=== PATIENT | female | born 1985 | race Caucasian/White ===

== ENCOUNTER 2020-03-24 14:34 | Emergency (ER) | payer OTHER ==
[~2020-03-24] VITALS: Ht 162.6 cm; Wt 93.4 kg
[2020-03-24 14:38] VITALS: BP 121/73
--- NOTE | 2020-03-24 15:23 | NUR ---
35 y/o female presents to ED for medication refill for tramadol. Pt states she ran out and has not been able to see primary care and suffers from chronic back pain. VSS
[2020-03-24 15:26] VITALS: BP 121/73
--- NOTE | 2020-03-24 15:27 | NUR ---
Patient discharged with v/s stable. Written and verbal after care instructions given and explained. Patient alert, oriented and verbalized understanding of instructions. Ambulatory with steady gait. All questions addressed prior to discharge. ID band removed. Patient advised to follow up with PMD. Rx of tramdol 50mg q8hr PO PRN given. Patient educated on indication of medication including possible reaction and side effects. Opportunity to ask questions provided and answered.
== END 2020-03-24 15:27 | disposition home or self-care (01) ==
LOC: MED 14:34
DX: G89.29 Other chronic pain (principal); M54.5 Low back pain; Z76.0 Encounter for issue of repeat prescription
CPT/HCPCS: 99281; 99283

== ENCOUNTER 2020-06-24 13:54 | Emergency (ER) | payer OTHER ==
[~2020-06-24] VITALS: Ht 162.6 cm; Wt 88.9 kg
[2020-06-24 13:59] VITALS: BP 105/63
[2020-06-24 14:34] VITALS: BP 106/64
== END 2020-06-24 14:34 | disposition home or self-care (01) ==
LOC: MED 13:54
DX: G89.29 Other chronic pain (principal); M54.5 Low back pain; D64.9 Anemia, unspecified; Z98.890 Other specified postprocedural states; Z90.49 Acquired absence of other specified parts of digestive tract
CPT/HCPCS: 99283

== ENCOUNTER 2020-08-17 16:40 | Emergency (ER) | payer OTHER ==
[~2020-08-17] VITALS: Ht 160 cm; Wt 93.0 kg
[2020-08-17 16:51] VITALS: BP 124/68
[2020-08-17] MEDS ORDERED: TRAM50TA3 PO (17:06)
[2020-08-17 17:46] VITALS: BP 124/68
== END 2020-08-17 17:46 | disposition home or self-care (01) ==
LOC: MED 16:40
DX: G89.29 Other chronic pain (principal); M54.9 Dorsalgia, unspecified; W10.8XXD Fall (on) (from) other stairs and steps, subsequent encounter; Z79.899 Other long term (current) drug therapy
CPT/HCPCS: 99281

== ENCOUNTER 2020-09-16 15:43 | Emergency (ER) | payer OTHER ==
[~2020-09-16] VITALS: Ht 162.6 cm; Wt 93.0 kg
[~2020-09-16 15:43] MED LIST: TRAM50TA3 PO
[2020-09-16 15:51] VITALS: BP 132/69
--- NOTE | 2020-09-16 15:57 | NUR ---
Pt ambulated to ER bed 11.
--- NOTE | 2020-09-16 16:01 | NUR ---
35 Y/O FEMALE C/O MIGRAINE X5DAYS INTERMITTENT 09/05 DESCRIBES DULL. PT STATES N/V, SENSITIVITY TO LIGHT, DENIES FEVER/CHILLS. PT STATES SHE TAKES TRAMADOL 50MG BID BUT HAS BEEN TAKING IT TID, RAN OUT. PCP APPT PENDING UNTIL THE BEGINNING OF NEXT MONTH. DENIES PMH NKA
--- NOTE | 2020-09-16 16:31 | NUR ---
Dr. Dubon at pt bedside for further evaluation.
[2020-09-16] MEDS ORDERED: diphenhydrAMINE 50 MG/ML VIAL IVP ONE (16:40)
[2020-09-16] MEDS ORDERED: NACL 0.9% 1,000 ML IV ONE (16:40)
[2020-09-16] MEDS ORDERED: METOCLOPRAMIDE 10 MG/2 ML INJ VIAL IVP ONE (16:40)
--- NOTE | 2020-09-16 17:18 | NUR ---
PATIENT AMBULATED TO RESTROOM WITH STEADY GAIT
[2020-09-16] MEDS ORDERED: TRAM50TA1 PO (18:26)
[2020-09-16] MEDS ORDERED: SUMA20SP NS (18:26)
[2020-09-16 18:39] VITALS: BP 132/69
--- NOTE | 2020-09-16 18:40 | NUR ---
Patient discharged with v/s stable. Written and verbal after care instructions given and explained. Patient alert, oriented and verbalized understanding of instructions. Ambulatory with steady gait. All questions addressed prior to discharge. ID band removed. Patient advised to follow up with PMD. Rx of sumatriptan 20mg Nasal spray once daily prn headaches, and tramadol 50mg BID po prn pain given. Patient educated on indication of medication including possible reaction and side effects. Opportunity to ask questions provided and answered.
== END 2020-09-16 18:40 | disposition home or self-care (01) ==
LOC: MED 15:43
DX: R51.9 Headache, unspecified (principal); G89.29 Other chronic pain; F19.20 Other psychoactive substance dependence, uncomplicated; Z79.899 Other long term (current) drug therapy
CPT/HCPCS: 96361; 96374; 96375; 99284; J1200; J2765; J7030

== ENCOUNTER 2020-11-10 17:33 | Emergency (ER) | payer OTHER ==
[~2020-11-10] VITALS: Ht 162.6 cm; Wt 91.9 kg
[~2020-11-10 17:33] MED LIST changes: +SUMA20SP NS; +TRAM50TA1 PO
--- NOTE | 2020-11-10 17:36 | NUR ---
Pt ambulated to ER bed 11.
[2020-11-10 17:37] VITALS: BP 106/46
[2020-11-10] MEDS ORDERED: KETOROLAC 30 MG/ML VIAL IM ONE (17:40)
--- NOTE | 2020-11-10 17:45 | NUR ---
35 Y/O FEMALE C/O MID BACK PAIN6/10 DESCRIBES SHARP AND ACHING RADIATES TO UPPER BACK S/P FALL X3 DAYS. PT DENIES LOC, DENIES HITTING HEAD, DENIES N/V, DENIES FEVER/CHILLS. PMH: HYPOTHYROIDISM, MIGRAINE NKA
--- NOTE | 2020-11-10 17:48 | NUR ---
BIANCA Hoang at pt bedside for further evaluation.
[2020-11-10] MEDS ORDERED: TRAM50TA1 PO (17:54)
--- NOTE | 2020-11-10 18:02 | NUR ---
Patient discharged with v/s stable. Written and verbal after care instructions given FOR BACK SPRAIN and explained. Patient alert, oriented and verbalized understanding of instructions. Ambulatory with steady gait. All questions addressed prior to discharge. ID band removed. Patient advised to follow up with PMD. Rx of TRAMADOL 50MG PO BID PRN PAIN given. Patient educated on indication of medication including possible reaction and side effects. Opportunity to ask questions provided and answered.
== END 2020-11-10 18:01 | disposition home or self-care (01) ==
LOC: MED 17:33
DX: M54.5 Low back pain (principal); E07.9 Disorder of thyroid, unspecified; Z79.899 Other long term (current) drug therapy; Z98.890 Other specified postprocedural states
CPT/HCPCS: 81002; 81025; 96372; 99283; J1885

== ENCOUNTER 2020-12-08 15:15 | Emergency (ER) | payer OTHER ==
[~2020-12-08] VITALS: Ht 162.6 cm; Wt 91.9 kg
[2020-12-08 15:41] VITALS: BP 129/64
--- NOTE | 2020-12-08 17:10 | NUR ---
Patient ambulated from lobby to bed 11 with steady/even gait.
--- NOTE | 2020-12-08 17:18 | NUR ---
35 y/o F BIB self from home with c/c follow-up hCG quant. Patient A&Ox4, ambulatory, reports seen at [facility] on 12/06 for blood work and advised hCG 190034, 7weeks 3 days. Patient states vaginal cramping x 2 weeks, and bleeding x 1 day "spotting" that went away. Patient states nausea that is normal for her, reports able to keep foods down. A1 L2. LMP: September 2020. Denies dizziness, fever/chills, SOB, cough, flu-like symptoms, urinary symptoms. Pt resting in position of comfort in no distress. Bed locked in lowest position, side rails x2, call light in reach. PMH: HYPOTHYROID, back pain Meds: Tramadol, levothyroxine Sx: 2 C-sections, ankle sx NKA
--- NOTE | 2020-12-08 17:18 | NUR ---
BIANCA Hoang is evaluating patient at bedside.
--- NOTE | 2020-12-08 17:55 | NUR ---
Lab contacted to dilute blood sample d/t too high of reading. Patient and BIANCA Hoang made aware.
--- NOTE | 2020-12-08 18:15 | NUR ---
Patient requested OB-HOME CARE PHYSICAL THERAPIST MD information; resource sheet provided per request.
[2020-12-08] MEDS ORDERED: DOXY1TCP PO (18:34)
[2020-12-08 18:53] VITALS: BP 110/64
--- NOTE | 2020-12-08 18:53 | NUR ---
Patient discharged with v/s stable. Written and verbal after care instructions given and explained. Patient alert, oriented and verbalized understanding of instructions. Ambulatory with steady gait. All questions addressed prior to discharge. ID band removed. Patient advised to follow up with PMD. Rx of Diclegis given. Patient educated on indication of medication including possible reaction and side effects. Opportunity to ask questions provided and answered.
--- NOTE | 2020-12-08 18:56 | NUR ---
hCG copy provided to patient.
== END 2020-12-08 18:56 | disposition home or self-care (01) ==
LOC: MED 15:15
DX: O20.8 Other hemorrhage in early pregnancy (principal); O21.8 Other vomiting complicating pregnancy; E07.9 Disorder of thyroid, unspecified; Z79.899 Other long term (current) drug therapy
CPT/HCPCS: 36415; 84702; 99283

== ENCOUNTER 2020-12-12 14:33 | Emergency (ER) | payer OTHER ==
[~2020-12-12] VITALS: Ht 162.6 cm; Wt 91.6 kg
[~2020-12-12 14:33] MED LIST changes: +DOXY1TCP PO
[2020-12-12 14:43] VITALS: BP 143/72
--- NOTE | 2020-12-12 14:45 | NUR ---
Patient ambulated to bed 11 with steady/even gait; placed into a gown. RN evaluating patient at bedside.
--- NOTE | 2020-12-12 15:00 | NUR ---
PATIENT PRESENTS TO ED WITH CHRONIC BACK PAIN, WITHDRAWING FROM TRAMADOL DUE TO EARLY , REPORTS SPOTTING LAST NIGHT, AGAIN NOW. DENIES N/V/D; SKIN IS PINK/WARM/DRY; AAOX4 WITH EVEN AND STEADY GAIT; LUNGS CLEAR BL; HR EVEN AND REGULAR; PT DENIES ANY FEVER, CP, SOB, OR COUGH AT THIS TIME; PATIENT STATES MID BACK PAIN OF 5/10 AT THIS TIME; DISTAL PULSES AND MOTOR INTACT VSS; PATIENT POSITIONED FOR COMFORT; HOB ELEVATED; BEDRAILS UP X2; BED DOWN.
--- NOTE | 2020-12-12 15:01 | NUR ---
Urine sample collected, walked to lab and handed to CPT. Summer
--- NOTE | 2020-12-12 15:14 | NUR ---
US tech at bedside.
[2020-12-12 15:40] LABS: BASOPHILS % (AUTO) 0.5 % (0.0-2.0); EOSINOPHILS # (AUTO) 0.1 K/uL (0-0.4); EOSINOPHILS % (AUTO) 1.4 % (0.0-4.0); HEMATOCRIT 30.2 % (36-48); HEMOGLOBIN 9.5 g/dL (12.0-16.0); LYMPHOCYTES # (AUTO) 1.6 K/uL (2.5-16.5); MEAN CORPUSCULAR HEMOGLOBIN 22 pg (27-31); MEAN CORPUSCULAR HGB CONC 31 g/dL (33-37); MEAN CORPUSCULAR VOLUME 68.8 fL (80-94); MONOCYTES % (AUTO) 10.1 % (1.7-9.3); PLATELET COUNT (AUTO) 340 K/uL (140-450); RED BLOOD CELL COUNT(AUTO) 4.39 MIL/uL (4.20-5.40); RED CELL DISTRIBUTION WIDTH 17.9 % (11.6-13.7); WHITE BLOOD COUNT (AUTO) 9.7 K/uL (4.8-10.8)
[2020-12-12 15:44] LABS: APPEARANCE,URINE SL CLOUDY (CLEAR); BILIRUBIN,URINE NEGATIVE (NEGATIVE); BLOOD, URINE 3+ (NEGATIVE); COLOR,URINE YELLOW (YELLOW); LEUKOCYTE ESTERASE ,URINE NEGATIVE (NEGATIVE); NITRITE, URINE NEGATIVE (NEGATIVE); UGLUCOSE NEGATIVE (NEGATIVE)
--- NOTE | 2020-12-12 15:47 | NUR ---
SAID AT BEDSIDE FOR REEVAL AND TO DISCUSS RESULTS AND PLAN OF CARE.
[2020-12-12 15:57] LABS: RBC,URINE 11-20 (MOD) /HPF (0-5); WBC,URINE 0-5 /HPF (0-5)
[2020-12-12 16:03] LABS: ALBUMIN 3.2 g/dL (3.4-5.0); ANION GAP 14.1 (8-16); CARBON DIOXIDE 22.6 mmol/L (21-32); CREATININE 0.7 mg/dL (0.6-1.3); POTASSIUM 3.7 mmol/L (3.5-5.1); TOTAL BILIRUBIN 0.2 mg/dL (0.0-1.0)
--- NOTE | 2020-12-12 16:22 | NUR ---
Patient resting in position of comfort. VSS; respirations even/unlabored. Bed locked in lowest position, side rails x 1, call light in reach.
[2020-12-12] MEDS ORDERED: ACETAMINOPHEN 325 MG TAB PO ONE (16:25)
--- NOTE | 2020-12-12 16:43 | NUR ---
MEDICATED FOR PAIN WITH TYLENOL 650MG PO, INSTRUCTED TO DISCONTINUE TRAMADOL WHILE . ASKING IF THERE IS ANYTHING SHE CAN SAFELY TAKE FOR THE WITHDRAWL SYMPTOMS, PER DR SAID SHE MAY USE OTC BENADRYL SPARINGLY IF NECESSARY, NOT TO TAKE DAILY DURING . PATIENT VERBALIZED UNDERSTANDING.
[2020-12-12] MEDS ORDERED: CEPH-588 PO (16:52)
[2020-12-12] MEDS ORDERED: DOXY1TAB6 PO (16:52)
[2020-12-12] MEDS ORDERED: ACET-2619 PO (16:52)
--- NOTE | 2020-12-12 16:55 | NUR ---
Dr. Menchaca is reevaluating patient at bedside.
[2020-12-12 17:05] VITALS: BP 139/76
--- NOTE | 2020-12-12 17:05 | NUR ---
Patient discharged with v/s stable. Written and verbal after care instructions given and explained. Patient alert, oriented and verbalized understanding of instructions. Ambulatory with steady gait. All questions addressed prior to discharge. ID band removed. Patient advised to follow up with PMD. Rx of Acetominophen, Cephalexin,Doxylamine Succinate/Bit B6 given. Patient educated on indication of medication including possible reaction and side effects. Opportunity to ask questions provided and answered.
== END 2020-12-12 17:01 | disposition home or self-care (01) ==
LOC: MED 14:33
DX: O23.41 Unspecified infection of urinary tract in pregnancy, first trimester (principal); O26.891 Other specified pregnancy related conditions, first trimester; O46.8X1 Other antepartum hemorrhage, first trimester; M54.9 Dorsalgia, unspecified; O21.9 Vomiting of pregnancy, unspecified; E07.9 Disorder of thyroid, unspecified; Z3A.01 Less than 8 weeks gestation of pregnancy
CPT/HCPCS: 36415; 76801; 80053; 81001; 81025; 83690; 84702; 85025; 86900; 86901; 87086; 99284

== ENCOUNTER 2020-12-23 23:25 | Emergency (ER) | payer OTHER ==
[~2020-12-23] VITALS: Ht 160 cm; Wt 91.6 kg
[~2020-12-23 23:25] MED LIST changes: +ACET-2619 PO; +CEPH-588 PO; +DOXY1TAB6 PO
[2020-12-23 23:41] VITALS: BP 124/72
--- NOTE | 2020-12-23 23:57 | NUR ---
LAB AT BEDSIDE.
--- NOTE | 2020-12-24 00:02 | NUR ---
PT BIB SELF FOR C/O INTERMITTENT VAGINAL BLEEDING X 2 WEEKS. PT STATES THAT SHE IS 9 WEEKS PREGNENT AND TODAY PASSED A VERY LARGE CLOT. WITH 1 MISCARRIAGE. PT REPORTS MILD CRAMPING, PAIN 3/10. MED HX: HYPOTHYROID ALLERGIES: NKA
[2020-12-24 00:05] LABS: APPEARANCE,URINE CLEAR (CLEAR); BILIRUBIN,URINE NEGATIVE (NEGATIVE); BLOOD, URINE 3+ (NEGATIVE); COLOR,URINE YELLOW (YELLOW); LEUKOCYTE ESTERASE ,URINE NEGATIVE (NEGATIVE); NITRITE, URINE NEGATIVE (NEGATIVE); PH,URINE 6.5 (5.0-9.0); UGLUCOSE NEGATIVE (NEGATIVE)
[2020-12-24 00:05] LABS: BASOPHILS % (AUTO) 0.5 % (0.0-2.0); EOSINOPHILS # (AUTO) 0.2 K/uL (0-0.4); EOSINOPHILS % (AUTO) 2.2 % (0.0-4.0); HEMATOCRIT 27.7 % (36-48); HEMOGLOBIN 8.8 g/dL (12.0-16.0); MEAN CORPUSCULAR HEMOGLOBIN 22 pg (27-31); MEAN CORPUSCULAR HGB CONC 32 g/dL (33-37); MEAN CORPUSCULAR VOLUME 69.2 fL (80-94); MONOCYTES # (AUTO) 0.9 K/uL (0.8-1.0); MONOCYTES % (AUTO) 9.3 % (1.7-9.3); NEUTROPHILS # (AUTO) 6.3 K/uL (1.8-7.7); PLATELET COUNT (AUTO) 383 K/uL (140-450); RED CELL DISTRIBUTION WIDTH 19.4 % (11.6-13.7); WHITE BLOOD COUNT (AUTO) 9.4 K/uL (4.8-10.8)
[2020-12-24 00:22] LABS: RBC,URINE TOO NUMEROUS TO COUN /HPF (0-5); WBC,URINE 0-5 /HPF (0-5)
--- NOTE | 2020-12-24 00:55 | NUR ---
Ultrasound at bedside.
--- NOTE | 2020-12-24 01:33 | NUR ---
Dr. Reyes examining patient.
--- NOTE | 2020-12-24 02:28 | NUR ---
ERMD AT BEDSIDE.
--- NOTE | 2020-12-24 02:30 | NUR ---
WITH PTS CONSENT, SPOKE WITH PTS , STEWART, AND UPDATED REGARDING PT STATUS.
[2020-12-24] MEDS ORDERED: ONDA8TAB87 PO (02:35)
[2020-12-24 02:41] VITALS: BP 102/55
== END 2020-12-24 02:40 | disposition home or self-care (01) ==
LOC: MED 23:25
DX: O20.0 Threatened abortion (principal); O21.8 Other vomiting complicating pregnancy; E03.9 Hypothyroidism, unspecified; Z3A.09 9 weeks gestation of pregnancy; Z98.890 Other specified postprocedural states; Z79.899 Other long term (current) drug therapy
CPT/HCPCS: 36415; 76817; 81001; 84702; 85025; 99284

== ENCOUNTER 2021-01-29 15:59 | Emergency (ER) | payer OTHER ==
[~2021-01-29] VITALS: Ht 162.6 cm; Wt 93.0 kg
[~2021-01-29 15:59] MED LIST changes: +ONDA8TAB87 PO
[2021-01-29 16:26] VITALS: BP 145/82
--- NOTE | 2021-01-29 16:30 | NUR ---
PT TO AWAIT IN LOBBY
--- NOTE | 2021-01-29 17:18 | NUR ---
BIANCA BULLARD EXAMINING PT
--- NOTE | 2021-01-29 17:18 | NUR ---
Keith PearlN Female [employer] accompanied for BIANCA Casey female patient for Bug bite exam to sacral area.
[2021-01-29] MEDS ORDERED: CEPH-588 PO (17:24)
[2021-01-29] MEDS ORDERED: ACET-10509 PO (17:24)
--- NOTE | 2021-01-29 17:54 | NUR ---
ATTEMPTED TO TO CALL PT IN LOBBY FOR D/C PAPERWORK. NO ANSWER AT THIS TIME
--- NOTE | 2021-01-29 17:54 | NUR ---
Tried to call for discharged several times and no answer. Pt left facility without discharge instructions.
== END 2021-01-29 17:54 | disposition home or self-care (01) ==
LOC: MED 15:59
DX: L03.116 Cellulitis of left lower limb (principal); E06.9 Thyroiditis, unspecified; Z79.899 Other long term (current) drug therapy
CPT/HCPCS: 99283

== ENCOUNTER 2021-05-18 15:57 | Emergency (ER) | payer OTHER ==
[~2021-05-18] VITALS: Ht 162.6 cm; Wt 96.8 kg
[~2021-05-18 15:57] MED LIST changes: +ACET-10509 PO
[2021-05-18 16:48] VITALS: BP 119/72
[2021-05-18] MEDS ORDERED: ACET-8386 PO (17:23)
[2021-05-18] MEDS ORDERED: DICL20GE TP (17:23)
[2021-05-18] MEDS: KETOROLAC 30 MG/ML VIAL IM ONE (17:58)
[2021-05-18 18:01] VITALS: BP 111/70
== END 2021-05-18 18:02 | disposition home or self-care (01) ==
LOC: MED 15:57
DX: S46.911A Strain of unspecified muscle, fascia and tendon at shoulder and upper arm level, right arm, initial encounter (principal); X58.XXXA Exposure to other specified factors, initial encounter; Y93.89 Activity, other specified; Y92.89 Other specified places as the place of occurrence of the external cause; Y99.8 Other external cause status
CPT/HCPCS: 96372; 99283; J1885

== ENCOUNTER 2021-07-31 15:42 | Emergency (ER) | payer OTHER ==
[~2021-07-31] VITALS: Ht 162.6 cm; Wt 99.1 kg
[~2021-07-31 15:42] MED LIST changes: +ACET-8386 PO; +DICL20GE TP
[2021-07-31 15:56] VITALS: BP 127/79
--- NOTE | 2021-07-31 15:56 | NUR ---
C/O RT SHOULDER PAIN X 3 WEEKS. NEED MEDS FOR PAIN MEDS. PAIN 01/05. ER PA TO SUSIE.
--- NOTE | 2021-07-31 16:01 | NUR ---
PT TO EUGENIA GARCIA
--- NOTE | 2021-07-31 16:02 | NUR ---
PT TO NISHA
[2021-07-31] MEDS ORDERED: KETOROLAC 30 MG/ML VIAL IM ONE (16:20)
[2021-07-31] MEDS ORDERED: ACET-8386 PO (16:31)
[2021-07-31] MEDS ORDERED: IBUP-2213 PO (16:31)
[2021-07-31 16:50] VITALS: BP 122/70
--- NOTE | 2021-07-31 16:53 | NUR ---
Patient discharged with v/s stable. Written and verbal after care instructions given and explained. Patient alert, oriented and verbalized understanding of instructions. Ambulatory with steady gait. All questions addressed prior to discharge. ID band removed. Patient advised to follow up with PMD. Rx of NORCO,IBU given. Patient educated on indication of medication including possible reaction and side effects. Opportunity to ask questions provided and answered.
== END 2021-07-31 16:50 | disposition home or self-care (01) ==
LOC: MED 15:42
DX: M25.511 Pain in right shoulder (principal); E03.9 Hypothyroidism, unspecified; Z79.899 Other long term (current) drug therapy
CPT/HCPCS: 81025; 96372; 99283; J1885

== ENCOUNTER 2021-08-23 12:55 | Emergency (ER) | payer OTHER ==
[~2021-08-23 12:55] MED LIST changes: +IBUP-2213 PO
--- NOTE | 2021-08-23 13:36 | NUR ---
Contacted patient in lobby; no response at this time.
--- NOTE | 2021-08-23 13:40 | NUR ---
2nd response no answer.
== END 2021-08-23 13:36 | disposition left against medical advice (07) ==
LOC: MED 12:55
DX: Z53.21 Procedure and treatment not carried out due to patient leaving prior to being seen by health care provider (principal)

== ENCOUNTER 2021-08-24 11:40 | Emergency (ER) | payer OTHER ==
[~2021-08-24] VITALS: Ht 162.6 cm; Wt 99.8 kg
[2021-08-24 11:53] VITALS: BP 140/93
--- NOTE | 2021-08-24 12:00 | NUR ---
PATIENT AMBULATED TO ROOM 4, NORMAL GAIT
--- NOTE | 2021-08-24 14:23 | NUR ---
DR BRADFORD AT BEDSIDE
[2021-08-24] MEDS ORDERED: NEOMYCIN/POLYMYXIN/BACITRACIN 0.9 GM/1 PKT TP ONE (14:30)
[2021-08-24 14:43] VITALS: BP 140/93
== END 2021-08-24 14:43 | disposition home or self-care (01) ==
LOC: MED 11:40
DX: S61.210A Laceration without foreign body of right index finger without damage to nail, initial encounter (principal); Z86.39 Personal history of other endocrine, nutritional and metabolic disease; Z79.891 Long term (current) use of opiate analgesic; Z79.1 Long term (current) use of non-steroidal anti-inflammatories (NSAID); Z79.899 Other long term (current) drug therapy; Z79.2 Long term (current) use of antibiotics; W25.XXXA Contact with sharp glass, initial encounter; Y93.89 Activity, other specified; Y92.89 Other specified places as the place of occurrence of the external cause; Y99.8 Other external cause status
CPT/HCPCS: 90471; 90715; 99283

== ENCOUNTER 2022-01-24 20:52 | Emergency (ER) | payer OTHER ==
[~2022-01-24] VITALS: Ht 162.6 cm; Wt 97.1 kg
[2022-01-24 21:27] VITALS: BP 120/72
--- NOTE | 2022-01-24 22:31 | NUR ---
Dr. Smart examining pateint.
[2022-01-24] MEDS ORDERED: cephALEXin 500 MG CAP PO ONE (22:50)
[2022-01-24] MEDS ORDERED: KETOROLAC 60 MG/2 ML VIAL IM ONE (22:50)
[2022-01-24] MEDS ORDERED: ACETAMINOPHEN/CODEINE 300/30MG 1 TAB PO ONE (22:50)
[2022-01-24] MEDS ORDERED: CEPH-588 PO (22:52)
[2022-01-24 23:23] VITALS: BP 122/74
--- NOTE | 2022-01-24 23:24 | NUR ---
Patient discharged with v/s stable. Written and verbal after care instructions given and explained. Patient alert, oriented and verbalized understanding of instructions. Ambulatory with steady gait. All questions addressed prior to discharge. ID band removed. Patient advised to follow up with PMD. Rx of KEFLEX given. Patient educated on indication of medication including possible reaction and side effects. Opportunity to ask questions provided and answered. VSS, A/OX4, AMBULATORY, UNLABORED BREATHING, AND CALM DEMEANOR.
== END 2022-01-24 23:24 | disposition home or self-care (01) ==
LOC: MED 20:52
DX: R10.2 Pelvic and perineal pain (principal); E07.9 Disorder of thyroid, unspecified; Z79.899 Other long term (current) drug therapy; Z90.49 Acquired absence of other specified parts of digestive tract; Z98.890 Other specified postprocedural states
CPT/HCPCS: 81002; 81025; 96372; 99283; J1885

== ENCOUNTER 2022-05-26 11:34 | Emergency (ER) | payer OTHER ==
[~2022-05-26] VITALS: Ht 162.6 cm; Wt 97.5 kg
[~2022-05-26 11:34] MED LIST changes: -ACET-8386 PO; +ACET-8905 PO; +TRAM-748 PO; -TRAM50TA1 PO
[2022-05-26 11:45] VITALS: BP 119/80
--- NOTE | 2022-05-26 11:47 | NUR ---
pt ambulated to bed 9
[2022-05-26] MEDS ORDERED: IBUPROFEN 600 MG TAB PO ONE (11:55)
--- NOTE | 2022-05-26 12:04 | NUR ---
X-Ray at bedside.
--- NOTE | 2022-05-26 12:09 | NUR ---
37 Y/O FEMALE BIB SELF C/O RIGHT ARM AND WRIST PAINX5 DAYS. PER PT PD "HANDCUFFED HER AND THEY TWISTED MY ARM", FULL ROM NOTED. PT WAS SEEN IN [facility] ED AND WAS DC WITH NEGATIVE FX. TOOK TYLENOL AT 1100H TODAY FOR PAIN WITH MINIMAL RELIEF. pmh: hypothyroidism NKA
[2022-05-26] MEDS ORDERED: KETOROLAC 15 MG/ML VIAL IM ONE (13:45)
--- NOTE | 2022-05-26 13:52 | NUR ---
PT SEEN WALKING OUT OF FACILITY, LEFT W/O DC PAPERS, BIANCA DOUGLAS MADE AWARE
== END 2022-05-26 13:52 | disposition home or self-care (01) ==
LOC: MED 11:34
DX: M79.601 Pain in right arm (principal); E07.9 Disorder of thyroid, unspecified; Z79.899 Other long term (current) drug therapy
CPT/HCPCS: 73030; 73060; 73080; 73090; 73110; 73130; 81025; 96372; 99284; J1885

== ENCOUNTER 2022-07-15 10:33 | Emergency (ER) | payer OTHER ==
[~2022-07-15] VITALS: Ht 162.6 cm; Wt 97.5 kg
[2022-07-15 10:46] VITALS: BP 125/73
--- NOTE | 2022-07-15 11:08 | NUR ---
37/F WALKED IN C/O RLQ ABD PAIN RADIATING TO THE LOWER BACK ACCOMPANIED BY NAUSEA AND VOMITING ONSET 2 DAYSX 1 EPISODE OF VOMITING TODAY. DENIES ANY VAGINAL BLEEDING, STATES SOME BROWN VAGINAL DISCHARGE. DENIES BLOOD IN VOMIT OR STOOL. AFEBRILE AT TRIAGE. DENIES ANY MEDICATION PRIOR TO ARRIVAL. DENIES DIARRHEA PMH: UTERINE FIBROID, OVARIAN CYST, HYPOTHYROIDISM
--- NOTE | 2022-07-15 11:42 | NUR ---
URINE WALKED TO LAB
--- NOTE | 2022-07-15 11:51 | NUR ---
DR EUBANKS AT BEDSIDE FOR EVAL
[2022-07-15] MEDS ORDERED: KETOROLAC 60 MG/2 ML VIAL IM ONE (11:55)
[2022-07-15] MEDS ORDERED: ONDANSETRON 4 MG ODT PO ONE (11:55)
--- NOTE | 2022-07-15 12:04 | NUR ---
PT AMBULATED TO BATHROOM WITH STEADY GAIT
--- NOTE | 2022-07-15 12:16 | NUR ---
LAB AT BEDSIDE
[2022-07-15 12:21] LABS: APPEARANCE,URINE CLEAR (CLEAR); BILIRUBIN,URINE NEGATIVE (NEGATIVE); BLOOD, URINE NEGATIVE (NEGATIVE); COLOR,URINE YELLOW (YELLOW); LEUKOCYTE ESTERASE ,URINE NEGATIVE (NEGATIVE); NITRITE, URINE NEGATIVE (NEGATIVE); UGLUCOSE NEGATIVE (NEGATIVE)
--- NOTE | 2022-07-15 12:44 | NUR ---
US AT BEDSIDE
[2022-07-15 13:22] LABS: BASOPHILS % (AUTO) 0.7 % (0.0-2.0); EOSINOPHILS # (AUTO) 0.1 K/uL (0-0.4); EOSINOPHILS % (AUTO) 2.3 % (0.0-4.0); HEMATOCRIT 35.8 % (36-48); HEMOGLOBIN 11.5 g/dL (12.0-16.0); LYMPHOCYTES # (AUTO) 2.1 K/uL (2.5-16.5); LYMPHOCYTES % (AUTO) 33.1 % (20.5-51.1); MEAN CORPUSCULAR HEMOGLOBIN 25 pg (27-31); MEAN CORPUSCULAR HGB CONC 32 g/dL (33-37); MEAN CORPUSCULAR VOLUME 76.7 fL (80-94); MONOCYTES # (AUTO) 0.6 K/uL (0.8-1.0); MONOCYTES % (AUTO) 9.6 % (1.7-9.3); NEUTROPHILS # (AUTO) 3.4 K/uL (1.8-7.7); NEUTROPHILS % (AUTO) 54.3 % (42.2-75.2); PLATELET COUNT (AUTO) 377 K/uL (140-450); RED BLOOD CELL COUNT(AUTO) 4.66 MIL/uL (4.20-5.40); RED CELL DISTRIBUTION WIDTH 15.1 % (11.6-13.7); WHITE BLOOD COUNT (AUTO) 6.3 K/uL (4.8-10.8)
[2022-07-15 13:40] LABS: ALBUMIN 4.3 g/dL (3.4-5.0); ANION GAP 11.9 (8-16); CARBON DIOXIDE 27.7 mmol/L (21-32); CREATININE 0.8 mg/dL (0.6-1.3); POTASSIUM 3.6 mmol/L (3.5-5.1); TOTAL BILIRUBIN 0.3 mg/dL (0.0-1.0)
--- NOTE | 2022-07-15 14:28 | NUR ---
PT TAKEN TO CT VIA JESSICA
--- NOTE | 2022-07-15 14:39 | NUR ---
PT BROUGHT BACK VIA JESSICA
[2022-07-15 14:40] VITALS: BP 120/73
[2022-07-15] MEDS ORDERED: HYDR-5191 PO (15:30)
--- NOTE | 2022-07-15 15:44 | NUR ---
IV removed, catheter intact and site benign. Applied folded 4x4 gauze and tape to stop bleeding.
--- NOTE | 2022-07-15 15:45 | NUR ---
Patient discharged with v/s stable. Written and verbal after care instructions FOR PELVIC PAIN, ABD PAIN AN, UTERINE FIBROIDS AND OVARIAN CYSTS given and explained. Patient alert, oriented and verbalized understanding of instructions. Ambulatory with steady gait. All questions addressed prior to discharge. ID band removed. Patient advised to follow up with PMD. Rx of HYDROCODONE AND ZOFRAN given. Opportunity to ask questions provided and answered.
--- NOTE | 2022-07-15 15:46 | NUR ---
The patient's care was reviewed and supervised by Son Sarabia RN.
[2022-07-15] MEDS ORDERED: ONDA-188 SL (15:48)
== END 2022-07-15 15:45 | disposition home or self-care (01) ==
LOC: MED 10:33
DX: N83.202 Unspecified ovarian cyst, left side (principal); D25.9 Leiomyoma of uterus, unspecified; E03.9 Hypothyroidism, unspecified; Z90.49 Acquired absence of other specified parts of digestive tract; Z98.890 Other specified postprocedural states; Z79.899 Other long term (current) drug therapy; Z79.2 Long term (current) use of antibiotics; Z79.891 Long term (current) use of opiate analgesic; Z79.1 Long term (current) use of non-steroidal anti-inflammatories (NSAID)
CPT/HCPCS: 36415; 74177; 76705; 76830; 80053; 81003; 81025; 85025; 93976; 96372; 99285; J1885; Q0092; Q0162; Q9967

== ENCOUNTER 2022-10-31 21:23 | Emergency (ER) | payer OTHER ==
[~2022-10-31] VITALS: Ht 162.6 cm; Wt 99.8 kg
[~2022-10-31 21:23] MED LIST changes: +HYDR-5191 PO; +ONDA-188 SL
[2022-10-31 21:33] VITALS: BP 127/74
--- NOTE | 2022-10-31 21:55 | NUR ---
PT TAKEN TO BED 2
[2022-10-31 22:09] LABS: APPEARANCE,URINE CLEAR (CLEAR); BILIRUBIN,URINE NEGATIVE (NEGATIVE); BLOOD, URINE TRACE-I (NEGATIVE); COLOR,URINE YELLOW (YELLOW); LEUKOCYTE ESTERASE ,URINE NEGATIVE (NEGATIVE); NITRITE, URINE NEGATIVE (NEGATIVE); UGLUCOSE NEGATIVE (NEGATIVE)
--- NOTE | 2022-10-31 22:09 | NUR ---
Patient stated she "came in a month and a half ago and was informed she has fatty liver and diverticulitis." Patient stated her abdominal pain was 10/10 until she took a 10/325 [place] PO at 2030 hrs.
--- NOTE | 2022-10-31 22:09 | NUR ---
Patient resting in bed, A/Ox4, chest rise and fall symmetrical, no s/s of distress, on monitor.
[2022-10-31 22:17] LABS: RBC,URINE 0-5 /HPF (0-5)
--- NOTE | 2022-10-31 22:20 | NUR ---
BEING EVALUATED BY PHYSICIAN AT BEDSIDE.
[2022-10-31] MEDS ORDERED: MORPHINE SULFATE 4 MG/ML SYR IM ONE (23:30)
[2022-10-31] MEDS ORDERED: DICYCLOMINE 20 MG/2 ML VIAL IM ONE (23:30)
--- NOTE | 2022-11-01 00:10 | NUR ---
Patient resting in bed, A/Ox4, chest rise and fall symmetrical, no c/o pain or s/s of distress, on monitor.
[2022-11-01] MEDS ORDERED: BEN10 PO (00:19)
[2022-11-01] MEDS ORDERED: ACET-5629 PO (00:19)
[2022-11-01] MEDS ORDERED: ONDA-188 PO (00:30)
[2022-11-01 00:32] VITALS: BP 115/72
[2022-11-01] MEDS ORDERED: ACET-5636 PO (00:58)
== END 2022-11-01 00:32 | disposition home or self-care (01) ==
LOC: MED 21:23
DX: R10.84 Generalized abdominal pain (principal); R11.0 Nausea; R63.0 Anorexia; E07.9 Disorder of thyroid, unspecified; Z79.899 Other long term (current) drug therapy; Z90.49 Acquired absence of other specified parts of digestive tract
CPT/HCPCS: 81001; 81025; 96372; 99284; J0500; J2270

== ENCOUNTER 2022-11-21 08:56 | Emergency (ER) | payer OTHER ==
[~2022-11-21] VITALS: Ht 162.6 cm; Wt 95.7 kg
[~2022-11-21 08:56] MED LIST changes: +ACET-5636 PO; +BEN10 PO; +ONDA-188 PO
[2022-11-21 09:05] VITALS: BP 132/90; PULSE 89; RESP 20; TEMP 98; O2SAT 99
[2022-11-21 10:27] LABS: APPEARANCE,URINE CLEAR (CLEAR); BILIRUBIN,URINE NEGATIVE (NEGATIVE); BLOOD, URINE NEGATIVE (NEGATIVE); COLOR,URINE YELLOW (YELLOW); LEUKOCYTE ESTERASE ,URINE NEGATIVE (NEGATIVE); NITRITE, URINE NEGATIVE (NEGATIVE); PH,URINE 7.5 (5.0-9.0); UGLUCOSE NEGATIVE (NEGATIVE)
[2022-11-21 10:30] LABS: BASOPHILS # (AUTO) 0.1 K/uL (0.00-0.22); EOSINOPHILS # (AUTO) 0.2 K/uL (0-0.4); EOSINOPHILS % (AUTO) 2.7 % (0.0-4.0); HEMATOCRIT 41.2 % (36-48); HEMOGLOBIN 13.6 g/dL (12.0-16.0); LYMPHOCYTES # (AUTO) 2.1 K/uL (2.5-16.5); LYMPHOCYTES % (AUTO) 25.1 % (20.5-51.1); MEAN CORPUSCULAR HEMOGLOBIN 28 pg (27-31); MEAN CORPUSCULAR HGB CONC 33 g/dL (33-37); MEAN CORPUSCULAR VOLUME 83.4 fL (80-94); MONOCYTES # (AUTO) 0.6 K/uL (0.8-1.0); MONOCYTES % (AUTO) 7.1 % (1.7-9.3); NEUTROPHILS # (AUTO) 5.3 K/uL (1.8-7.7); NEUTROPHILS % (AUTO) 64.1 % (42.2-75.2); PLATELET COUNT (AUTO) 359 K/uL (140-450); RED BLOOD CELL COUNT(AUTO) 4.93 MIL/uL (4.20-5.40); RED CELL DISTRIBUTION WIDTH 14.6 % (11.6-13.7); WHITE BLOOD COUNT (AUTO) 8.3 K/uL (4.8-10.8)
[2022-11-21] MEDS ORDERED: MORPHINE SULFATE 4 MG/ML SYR IVP ONE (10:35)
[2022-11-21 10:48] LABS: ALBUMIN 3.9 g/dL (3.4-5.0); ANION GAP 8.7 (8-16); CARBON DIOXIDE 32.6 mmol/L (21-32); CREATININE 0.8 mg/dL (0.6-1.3); POTASSIUM 4.3 mmol/L (3.5-5.1); TOTAL BILIRUBIN 0.3 mg/dL (0.0-1.0)
[2022-11-21] MEDS ORDERED: HYDR-5080 PO (12:20)
[2022-11-21 12:24] VITALS: BP 112/70; PULSE 74; RESP 17; O2SAT 98
== END 2022-11-21 12:24 | disposition home or self-care (01) ==
LOC: MED 08:56
DX: R10.11 Right upper quadrant pain (principal); E03.9 Hypothyroidism, unspecified; Z79.899 Other long term (current) drug therapy
CPT/HCPCS: 36415; 74177; 76705; 80053; 81003; 83690; 84703; 85025; 96374; 99285; J2270; Q0092; Q9967

== ENCOUNTER 2022-11-30 14:01 | Emergency (ER) | payer OTHER ==
[~2022-11-30] VITALS: Ht 167.6 cm; Wt 77.1 kg
[~2022-11-30 14:01] MED LIST changes: +HYDR-5080 PO
[2022-11-30 14:34] VITALS: BP 115/69; PULSE 83; RESP 20; TEMP 98.6; O2SAT 98
--- NOTE | 2022-11-30 15:30 | NUR ---
ASSESSING PT BEDSIDE
[2022-11-30] MEDS ORDERED: MORPHINE SULFATE 4 MG/ML SYR IM ONE (15:45)
[2022-11-30 15:58] LABS: BASOPHILS % (AUTO) 0.5 % (0.0-2.0); EOSINOPHILS # (AUTO) 0.2 K/uL (0-0.4); EOSINOPHILS % (AUTO) 1.9 % (0.0-4.0); HEMATOCRIT 37.5 % (36-48); HEMOGLOBIN 12.4 g/dL (12.0-16.0); LYMPHOCYTES # (AUTO) 1.8 K/uL (2.5-16.5); LYMPHOCYTES % (AUTO) 22.1 % (20.5-51.1); MEAN CORPUSCULAR HEMOGLOBIN 28 pg (27-31); MEAN CORPUSCULAR HGB CONC 33 g/dL (33-37); MEAN CORPUSCULAR VOLUME 83.3 fL (80-94); MONOCYTES # (AUTO) 0.7 K/uL (0.8-1.0); NEUTROPHILS # (AUTO) 5.6 K/uL (1.8-7.7); NEUTROPHILS % (AUTO) 67.5 % (42.2-75.2); PLATELET COUNT (AUTO) 319 K/uL (140-450); WHITE BLOOD COUNT (AUTO) 8.3 K/uL (4.8-10.8)
[2022-11-30] MEDS ORDERED: ONDANSETRON 4 MG ODT PO ONE (16:00)
--- NOTE | 2022-11-30 16:01 | NUR ---
pt medicated per MD order. NADR. WOOD verbalized
[2022-11-30 17:20] LABS: ALBUMIN 3.5 g/dL (3.4-5.0); ANION GAP 10.9 (8-16); CARBON DIOXIDE 28.8 mmol/L (21-32); CREATININE 0.8 mg/dL (0.6-1.3); POTASSIUM 3.7 mmol/L (3.5-5.1); TOTAL BILIRUBIN 0.4 mg/dL (0.0-1.0)
[2022-11-30] MEDS ORDERED: diphenhydrAMINE 50 MG CAP PO ONE (17:35)
[2022-11-30] MEDS ORDERED: KETOROLAC 15 MG/ML VIAL IM ONE (17:35)
[2022-11-30] MEDS ORDERED: METOCLOPRAMIDE 10 MG TAB PO ONE (17:35)
[2022-11-30] MEDS ORDERED: ACET-5636 PO ×2 (17:36→17:41)
[2022-11-30] MEDS ORDERED: NALO4SPR NS (17:36)
--- NOTE | 2022-11-30 17:44 | NUR ---
pt medicated per MD order. NADR. WOOD verbalized
--- NOTE | 2022-11-30 17:52 | NUR ---
Patient discharged with v/s stable. Written and verbal after care instructions given and explained. Patient alert, oriented and verbalized understanding of instructions. Ambulatory with steady gait. All questions addressed prior to discharge. ID band removed. Patient advised to follow up with PMD. Rx of PERCOCET given. Patient educated on indication of medication including possible reaction and side effects. Opportunity to ask questions provided and answered.
== END 2022-11-30 17:52 | disposition home or self-care (01) ==
LOC: MED 14:01
DX: R10.11 Right upper quadrant pain (principal); K59.00 Constipation, unspecified; E03.9 Hypothyroidism, unspecified; Z79.899 Other long term (current) drug therapy
CPT/HCPCS: 36415; 80053; 81002; 81025; 83690; 85025; 96372; 99284; J1885; J2270; J8597; Q0162; Q0163

== ENCOUNTER 2023-01-28 15:59 | Emergency (ER) | payer OTHER ==
[~2023-01-28] VITALS: Ht 157.5 cm; Wt 94.3 kg
[~2023-01-28 15:59] MED LIST changes: +NALO4SPR NS; +OXYC10TA43 PO
[2023-01-28 16:40] VITALS: BP 129/89; PULSE 82; RESP 16; TEMP 98; O2SAT 99
[2023-01-28 17:04] LABS: BASOPHILS % (AUTO) 0.6 % (0.0-2.0); EOSINOPHILS # (AUTO) 0.2 K/uL (0-0.4); HEMATOCRIT 35.5 % (36-48); HEMOGLOBIN 11.7 g/dL (12.0-16.0); LYMPHOCYTES % (AUTO) 26.1 % (20.5-51.1); MEAN CORPUSCULAR HEMOGLOBIN 27 pg (27-31); MEAN CORPUSCULAR HGB CONC 33 g/dL (33-37); MEAN CORPUSCULAR VOLUME 81.6 fL (80-94); MONOCYTES # (AUTO) 0.6 K/uL (0.8-1.0); MONOCYTES % (AUTO) 8.6 % (1.7-9.3); NEUTROPHILS # (AUTO) 4.7 K/uL (1.8-7.7); NEUTROPHILS % (AUTO) 62.7 % (42.2-75.2); PLATELET COUNT (AUTO) 377 K/uL (140-450); RED BLOOD CELL COUNT(AUTO) 4.35 MIL/uL (4.20-5.40); WHITE BLOOD COUNT (AUTO) 7.5 K/uL (4.8-10.8)
[2023-01-28 17:12] LABS: ALBUMIN 3.7 g/dL (3.4-5.0); ANION GAP 10.4 (8-16); CALCIUM 9.1 mg/dL (8.5-10.1); CARBON DIOXIDE 28.7 mmol/L (21-32); CREATININE 0.9 mg/dL (0.6-1.3); POTASSIUM 4.1 mmol/L (3.5-5.1); TOTAL BILIRUBIN 0.3 mg/dL (0.0-1.0); TOTAL PROTEIN, SERUM 7.9 g/dL (6.4-8.2)
[2023-01-28] MEDS ORDERED: BEN10 PO (19:10)
[2023-01-28] MEDS ORDERED: ACET-8905 PO (19:10)
[2023-01-28] MEDS ORDERED: MORPHINE SULFATE 4 MG/ML SYR IM ONE (19:15)
[2023-01-28 19:55] VITALS: BP 129/89; PULSE 82; RESP 16; TEMP 98; O2SAT 99
== END 2023-01-28 19:55 | disposition home or self-care (01) ==
LOC: MED 15:59
DX: R10.10 Upper abdominal pain, unspecified (principal); E03.9 Hypothyroidism, unspecified; Z79.899 Other long term (current) drug therapy; Z90.49 Acquired absence of other specified parts of digestive tract
CPT/HCPCS: 36415; 80053; 81002; 81025; 83690; 85025; 96372; 99283; J2270

== ENCOUNTER 2023-02-07 08:10 | Emergency (ER) | payer OTHER ==
[~2023-02-07] VITALS: Ht 162.6 cm; Wt 99.3 kg
[2023-02-07 08:17] VITALS: BP 143/72; PULSE 88; RESP 15; TEMP 98.3; O2SAT 100
[2023-02-07] MEDS ORDERED: KETOROLAC 60 MG/2 ML VIAL IM ONE (08:50)
[2023-02-07] MEDS ORDERED: ONDANSETRON 4 MG ODT PO ONE (08:50)
[2023-02-07] MEDS ORDERED: HYDROcodone/APAP 5/325 MG 1 TAB TAB PO ONE (10:25)
[2023-02-07 10:59] VITALS: BP 143/72; PULSE 88; RESP 15; TEMP 98.3; O2SAT 100
== END 2023-02-07 10:59 | disposition home or self-care (01) ==
LOC: MED 08:10
DX: K29.70 Gastritis, unspecified, without bleeding (principal); N83.201 Unspecified ovarian cyst, right side; E03.9 Hypothyroidism, unspecified; Z79.899 Other long term (current) drug therapy; Z90.49 Acquired absence of other specified parts of digestive tract
CPT/HCPCS: 76830; 81002; 81025; 93976; 96372; 99285; J1885; Q0092; Q0162

== ENCOUNTER 2023-02-17 17:26 | Emergency (ER) | payer OTHER ==
[~2023-02-17] VITALS: Ht 167.6 cm; Wt 97.5 kg
[2023-02-17 17:33] VITALS: BP 123/83; PULSE 83; RESP 20; TEMP 98.1; O2SAT 98
[2023-02-17] MEDS ORDERED: MORPHINE SULFATE 4 MG/ML SYR IM ONE (17:55)
[2023-02-17] MEDS ORDERED: ONDANSETRON 4 MG ODT PO ONE (17:55)
[2023-02-17] MEDS ORDERED: HYDR-5191 PO (18:06)
[2023-02-17] MEDS ORDERED: ONDA8TAB87 PO (18:06)
[2023-02-17 18:29] VITALS: BP 119/70; PULSE 80; RESP 16; TEMP 97.6; O2SAT 98
== END 2023-02-17 18:30 | disposition home or self-care (01) ==
LOC: MED 17:26
DX: R10.11 Right upper quadrant pain (principal); R11.2 Nausea with vomiting, unspecified; R07.9 Chest pain, unspecified; E03.9 Hypothyroidism, unspecified; Z79.899 Other long term (current) drug therapy; Z90.49 Acquired absence of other specified parts of digestive tract; Z98.890 Other specified postprocedural states
CPT/HCPCS: 81002; 81025; 96372; 99283; J2270; Q0162

== ENCOUNTER 2023-03-29 12:29 | Emergency (ER) | payer OTHER ==
[~2023-03-29] VITALS: Ht 162.6 cm; Wt 95.0 kg
[2023-03-29 13:12] VITALS: BP 124/68; PULSE 81; RESP 20; TEMP 98.2; O2SAT 99
[2023-03-29 15:51] VITALS: BP 124/68; PULSE 81; RESP 20; TEMP 98.2
[2023-03-29 15:58] VITALS: O2SAT 99
[2023-03-29] MEDS ORDERED: NACL 0.9% 1,000 ML IV ONE (16:00)
[2023-03-29] MEDS ORDERED: HYDROcodone/APAP 7.5/325 MG 1 TAB PO ONE (16:00)
[2023-03-29] MEDS ORDERED: PROCHLORPERAZINE 10 MG/2 ML VIAL IVP ONE (16:00)
[2023-03-29] MEDS ORDERED: ONDANSETRON 4 MG/2 ML VIAL IVP ONE (16:00)
[2023-03-29 16:20] LABS: BASOPHILS # (AUTO) 0.1 K/uL (0.00-0.22); BASOPHILS % (AUTO) 1.1 % (0.0-2.0); EOSINOPHILS # (AUTO) 0.1 K/uL (0-0.4); EOSINOPHILS % (AUTO) 0.6 % (0.0-4.0); HEMATOCRIT 32.5 % (36-48); HEMOGLOBIN 10.4 g/dL (12.0-16.0); LYMPHOCYTES % (AUTO) 21.1 % (20.5-51.1); MEAN CORPUSCULAR HEMOGLOBIN 24 pg (27-31); MEAN CORPUSCULAR HGB CONC 32 g/dL (33-37); MEAN CORPUSCULAR VOLUME 74.5 fL (80-94); MONOCYTES # (AUTO) 0.6 K/uL (0.8-1.0); MONOCYTES % (AUTO) 6.1 % (1.7-9.3); NEUTROPHILS # (AUTO) 6.8 K/uL (1.8-7.7); NEUTROPHILS % (AUTO) 71.1 % (42.2-75.2); PLATELET COUNT (AUTO) 431 K/uL (140-450); RED BLOOD CELL COUNT(AUTO) 4.37 MIL/uL (4.20-5.40); RED CELL DISTRIBUTION WIDTH 14.2 % (11.6-13.7); WHITE BLOOD COUNT (AUTO) 9.6 K/uL (4.8-10.8)
[2023-03-29 16:29] LABS: ALBUMIN 3.9 g/dL (3.4-5.0); ANION GAP 13.3 (8-16); CALCIUM 8.8 mg/dL (8.5-10.1); CARBON DIOXIDE 25.3 mmol/L (21-32); CREATININE 0.9 mg/dL (0.6-1.3); POTASSIUM 3.6 mmol/L (3.5-5.1); TOTAL BILIRUBIN 0.3 mg/dL (0.0-1.0); TOTAL PROTEIN, SERUM 8.4 g/dL (6.4-8.2)
[2023-03-29 16:51] LABS: BILIRUBIN,URINE NEGATIVE (NEGATIVE); BLOOD, URINE TRACE-I (NEGATIVE); COLOR,URINE YELLOW (YELLOW); LEUKOCYTE ESTERASE ,URINE NEGATIVE (NEGATIVE); NITRITE, URINE NEGATIVE (NEGATIVE); PROTEIN,URINE NEGATIVE (NEGATIVE); UGLUCOSE NEGATIVE (NEGATIVE); UROBILINOGEN,URINE 0.2 EU/dL (0.2 - 1)
[2023-03-29 16:53] LABS: APPEARANCE,URINE SLIGHTLY HAZY (CLEAR)
[2023-03-29 17:06] LABS: BACTERIA,URINE FEW /HPF (None Seen); SQUAMOUS EPITHELIAL CELL,UR 4-10 (MOD) /LPF (0-3 (FEW)); WBC,URINE 0-5 /HPF (0-5)
[2023-03-29] MEDS ORDERED: MORPHINE SULFATE 4 MG/ML SYR IVP ONE (17:45)
[2023-03-29] MEDS ORDERED: HYDR-5191 PO (18:35)
[2023-03-29] MEDS ORDERED: IBUP-2213 PO (18:35)
== END 2023-03-29 18:40 | disposition home or self-care (01) ==
LOC: MED 12:29
DX: N83.201 Unspecified ovarian cyst, right side (principal); R51.9 Headache, unspecified; M79.18 Myalgia, other site; G89.29 Other chronic pain; R10.11 Right upper quadrant pain; Z86.39 Personal history of other endocrine, nutritional and metabolic disease; Z90.49 Acquired absence of other specified parts of digestive tract; Z79.899 Other long term (current) drug therapy; Z79.1 Long term (current) use of non-steroidal anti-inflammatories (NSAID); Z79.2 Long term (current) use of antibiotics
CPT/HCPCS: 36415; 76856; 80053; 81001; 81025; 83690; 85025; 87491; 93976; 96361; 96374; 96375; 99285; J0780; J2270; J2405; J7030; Q0092

== ENCOUNTER 2023-04-05 06:15 | Emergency (ER) | payer OTHER ==
[~2023-04-05] VITALS: Ht 162.6 cm; Wt 95.3 kg
[2023-04-05 06:20] VITALS: BP 137/63; PULSE 95; RESP 17; TEMP 97.8; O2SAT 100
[2023-04-05 06:41] VITALS: O2SAT 100
[2023-04-05] MEDS ORDERED: ONDANSETRON 4 MG ODT PO ONE (06:55)
[2023-04-05] MEDS ORDERED: MORPHINE SULFATE 4 MG/ML SYR IM ONE (06:55)
[2023-04-05 06:56] LABS: APPEARANCE,URINE CLEAR (CLEAR); BILIRUBIN,URINE NEGATIVE (NEGATIVE); BLOOD, URINE NEGATIVE (NEGATIVE); COLOR,URINE YELLOW (YELLOW); LEUKOCYTE ESTERASE ,URINE TRACE (NEGATIVE); NITRITE, URINE NEGATIVE (NEGATIVE); PROTEIN,URINE NEGATIVE (NEGATIVE); UGLUCOSE NEGATIVE (NEGATIVE); UROBILINOGEN,URINE 0.2 EU/dL (0.2 - 1)
[2023-04-05] MEDS ORDERED: ONDA8TAB87 PO (06:56)
[2023-04-05] MEDS ORDERED: HYDR-5080 PO (06:56)
== END 2023-04-05 07:19 | disposition home or self-care (01) ==
LOC: MED 06:15
DX: R10.11 Right upper quadrant pain (principal); R50.9 Fever, unspecified; R11.0 Nausea; Z86.39 Personal history of other endocrine, nutritional and metabolic disease; Z90.49 Acquired absence of other specified parts of digestive tract; Z98.890 Other specified postprocedural states; Z79.899 Other long term (current) drug therapy; Z79.1 Long term (current) use of non-steroidal anti-inflammatories (NSAID); Z79.2 Long term (current) use of antibiotics
CPT/HCPCS: 81003; 81025; 96372; 99283; J2270; Q0162

== ENCOUNTER 2023-05-01 13:25 | Emergency (ER) | payer OTHER ==
[~2023-05-01] VITALS: Ht 167.6 cm; Wt 72.6 kg
[2023-05-01 14:03] VITALS: BP 111/70; PULSE 101; RESP 20; TEMP 98; O2SAT 98
[2023-05-01 14:56] LABS: BASOPHILS # (AUTO) 0.1 K/uL (0.00-0.22); BASOPHILS % (AUTO) 0.8 % (0.0-2.0); EOSINOPHILS # (AUTO) 0.1 K/uL (0-0.4); EOSINOPHILS % (AUTO) 1.1 % (0.0-4.0); HEMATOCRIT 32.9 % (36-48); HEMOGLOBIN 10.2 g/dL (12.0-16.0); LYMPHOCYTES # (AUTO) 1.8 K/uL (2.5-16.5); LYMPHOCYTES % (AUTO) 22.4 % (20.5-51.1); MEAN CORPUSCULAR HEMOGLOBIN 22 pg (27-31); MEAN CORPUSCULAR HGB CONC 31 g/dL (33-37); MEAN CORPUSCULAR VOLUME 70.7 fL (80-94); MONOCYTES # (AUTO) 0.5 K/uL (0.8-1.0); MONOCYTES % (AUTO) 6.4 % (1.7-9.3); NEUTROPHILS # (AUTO) 5.6 K/uL (1.8-7.7); NEUTROPHILS % (AUTO) 69.3 % (42.2-75.2); PLATELET COUNT (AUTO) 389 K/uL (140-450); RED BLOOD CELL COUNT(AUTO) 4.65 MIL/uL (4.20-5.40); RED CELL DISTRIBUTION WIDTH 15.8 % (11.6-13.7); WHITE BLOOD COUNT (AUTO) 8.2 K/uL (4.8-10.8)
[2023-05-01 15:05] LABS: ANION GAP 13.5 (8-16); CARBON DIOXIDE 27.3 mmol/L (21-32); CREATININE 0.9 mg/dL (0.6-1.3); POTASSIUM 3.8 mmol/L (3.5-5.1)
[2023-05-01 15:10] LABS: APPEARANCE,URINE CLEAR (CLEAR); BILIRUBIN,URINE NEGATIVE (NEGATIVE); BLOOD, URINE NEGATIVE (NEGATIVE); COLOR,URINE YELLOW (YELLOW); LEUKOCYTE ESTERASE ,URINE TRACE (NEGATIVE); NITRITE, URINE NEGATIVE (NEGATIVE); PH,URINE 6.5 (5.0-9.0); PROTEIN,URINE NEGATIVE (NEGATIVE); UGLUCOSE NEGATIVE (NEGATIVE); UROBILINOGEN,URINE 0.2 EU/dL (0.2 - 1)
[2023-05-01 15:19] LABS: BACTERIA,URINE FEW /HPF (None Seen); RBC,URINE 0-5 /HPF (0-5); SQUAMOUS EPITHELIAL CELL,UR 0-3 (FEW) /LPF (0-3 (FEW))
[2023-05-01] MEDS ORDERED: ONDANSETRON 4 MG ODT PO ONE (17:45)
[2023-05-01] MEDS ORDERED: cephALEXin 500 MG CAP PO ONE (17:45)
[2023-05-01] MEDS ORDERED: MORPHINE SULFATE 4 MG/ML SYR IM ONE (17:45)
[2023-05-01] MEDS ORDERED: CEPH-588 PO (17:45)
[2023-05-01] MEDS ORDERED: ONDA-188 PO (17:45)
[2023-05-01] MEDS ORDERED: HYDR-5191 PO (18:16)
[2023-05-01] MEDS ORDERED: NAPR-1704 PO (18:22)
[2023-05-01 18:43] VITALS: O2SAT 98
== END 2023-05-01 18:30 | disposition home or self-care (01) ==
LOC: MED 13:25
DX: N39.0 Urinary tract infection, site not specified (principal); D64.9 Anemia, unspecified; Z86.39 Personal history of other endocrine, nutritional and metabolic disease; Z90.49 Acquired absence of other specified parts of digestive tract; Z98.890 Other specified postprocedural states; Z79.899 Other long term (current) drug therapy; Z79.1 Long term (current) use of non-steroidal anti-inflammatories (NSAID); Z79.2 Long term (current) use of antibiotics
CPT/HCPCS: 36415; 80048; 81001; 81025; 83690; 85025; 87086; 96372; 99283; J2270; Q0162

== ENCOUNTER 2023-06-14 08:59 | Emergency (ER) | payer OTHER ==
[~2023-06-14] VITALS: Ht 162.6 cm; Wt 95.3 kg
[~2023-06-14 08:59] MED LIST changes: +NAPR-1704 PO
[2023-06-14 09:26] VITALS: BP 130/78; PULSE 89; RESP 16; TEMP 99.4; O2SAT 100
[2023-06-14] MEDS ORDERED: KETOROLAC 30 MG/ML VIAL IM ONE (10:10)
[2023-06-14] MEDS ORDERED: ONDANSETRON 4 MG ODT PO ONE (10:10)
[2023-06-14] MEDS ORDERED: NAPR-1704 PO (10:26)
[2023-06-14] MEDS ORDERED: ONDA-188 PO (10:26)
[2023-06-14] MEDS ORDERED: ACETAMINOPHEN 325 MG TAB PO ONE (11:15)
[2023-06-14 11:16] VITALS: O2SAT 100
[2023-06-14 12:08] LABS: FLU A ANTIGEN negative (NEGATIVE); FLU B ANTIGEN NEGATIVE (NEGATIVE)
== END 2023-06-14 11:35 | disposition home or self-care (01) ==
LOC: MED 08:59
DX: J06.9 Acute upper respiratory infection, unspecified (principal); Z20.822 Contact with and (suspected) exposure to COVID-19; R10.11 Right upper quadrant pain; E03.9 Hypothyroidism, unspecified; Z79.899 Other long term (current) drug therapy; Z90.49 Acquired absence of other specified parts of digestive tract
CPT/HCPCS: 81025; 87426; 87804; 96372; 99283; J1885; Q0162

== ENCOUNTER 2023-07-10 08:09 | Emergency (ER) | payer OTHER ==
[~2023-07-10] VITALS: Ht 162.6 cm; Wt 97.5 kg
[2023-07-10 08:10] VITALS: BP 117/77; PULSE 77; RESP 16; TEMP 98.5; O2SAT 100
[2023-07-10 09:05] LABS: BASOPHILS # (AUTO) 0.1 K/uL (0.00-0.22); BASOPHILS % (AUTO) 1.2 % (0.0-2.0); EOSINOPHILS # (AUTO) 0.1 K/uL (0-0.4); EOSINOPHILS % (AUTO) 2.4 % (0.0-4.0); HEMATOCRIT 25.2 % (36-48); HEMOGLOBIN 7.7 g/dL (12.0-16.0); LYMPHOCYTES # (AUTO) 1.6 K/uL (2.5-16.5); LYMPHOCYTES % (AUTO) 25.7 % (20.5-51.1); MEAN CORPUSCULAR HEMOGLOBIN 19 pg (27-31); MEAN CORPUSCULAR HGB CONC 31 g/dL (33-37); MEAN CORPUSCULAR VOLUME 62.4 fL (80-94); MONOCYTES # (AUTO) 0.5 K/uL (0.8-1.0); MONOCYTES % (AUTO) 8.2 % (1.7-9.3); NEUTROPHILS # (AUTO) 3.9 K/uL (1.8-7.7); NEUTROPHILS % (AUTO) 62.5 % (42.2-75.2); PLATELET COUNT (AUTO) 418 K/uL (140-450); RED BLOOD CELL COUNT(AUTO) 4.04 MIL/uL (4.20-5.40); WHITE BLOOD COUNT (AUTO) 6.3 K/uL (4.8-10.8)
[2023-07-10] MEDS: MORPHINE SULFATE 4 MG/ML SYR IM ONE (09:05)
[2023-07-10 09:21] LABS: ALBUMIN 3.4 g/dL (3.4-5.0); ANION GAP 15.1 (8-16); CALCIUM 8.5 mg/dL (8.5-10.1); CARBON DIOXIDE 26.7 mmol/L (21-32); CREATININE 0.8 mg/dL (0.6-1.3); POTASSIUM 3.8 mmol/L (3.5-5.1); TOTAL BILIRUBIN 0.2 mg/dL (0.0-1.0); TOTAL PROTEIN, SERUM 8.4 g/dL (6.4-8.2)
[2023-07-10] MEDS ORDERED: ONDANSETRON 4 MG ODT ONE (09:43)
[2023-07-10] MEDS ORDERED: FERR325E14 PO (09:44)
[2023-07-10] MEDS ORDERED: ACET-5629 PO (09:44)
[2023-07-10 09:56] VITALS: BP 117/77; PULSE 77; RESP 16; TEMP 98.5
[2023-07-10 10:01] VITALS: O2SAT 100
== END 2023-07-10 09:57 | disposition home or self-care (01) ==
LOC: MED 08:09
DX: R10.11 Right upper quadrant pain (principal); D50.9 Iron deficiency anemia, unspecified; Z79.899 Other long term (current) drug therapy
CPT/HCPCS: 36415; 80053; 81025; 83690; 85025; 96372; 99283; J2270; Q0162

== ENCOUNTER 2023-07-12 06:59 | Emergency (ER) | payer OTHER ==
[~2023-07-12] VITALS: Ht 162.6 cm; Wt 95.3 kg
[~2023-07-12 06:59] MED LIST changes: +ACET-5629 PO; +FERR325E14 PO
[2023-07-12 07:18] VITALS: BP 126/76; PULSE 79; RESP 16; TEMP 97.4; O2SAT 100
[2023-07-12 07:45] VITALS: O2SAT 100
[2023-07-12] MEDS: ONDANSETRON 4 MG ODT PO ONE (08:14)
[2023-07-12] MEDS: ACETAMINOPHEN EXTRA STRENGTH 500 MG TAB PO ONE (08:14)
[2023-07-12] MEDS: ALUMINUM HYD/MAG/SIMETHICONE 30 ML UDC PO ONE (08:15)
[2023-07-12] MEDS: KETOROLAC 30 MG/ML VIAL IM ONE (08:15)
[2023-07-12 08:30] LABS: BASOPHILS # (AUTO) 0.1 K/uL (0.00-0.22); BASOPHILS % (AUTO) 1.8 % (0.0-2.0); EOSINOPHILS # (AUTO) 0.2 K/uL (0-0.4); EOSINOPHILS % (AUTO) 3.3 % (0.0-4.0); HEMATOCRIT 25.3 % (36-48); HEMOGLOBIN 7.7 g/dL (12.0-16.0); LYMPHOCYTES # (AUTO) 1.6 K/uL (2.5-16.5); LYMPHOCYTES % (AUTO) 30.2 % (20.5-51.1); MEAN CORPUSCULAR HEMOGLOBIN 19 pg (27-31); MEAN CORPUSCULAR HGB CONC 31 g/dL (33-37); MEAN CORPUSCULAR VOLUME 62.8 fL (80-94); MONOCYTES # (AUTO) 0.5 K/uL (0.8-1.0); MONOCYTES % (AUTO) 10.2 % (1.7-9.3); NEUTROPHILS # (AUTO) 2.9 K/uL (1.8-7.7); NEUTROPHILS % (AUTO) 54.5 % (42.2-75.2); PLATELET COUNT (AUTO) 401 K/uL (140-450); RED BLOOD CELL COUNT(AUTO) 4.03 MIL/uL (4.20-5.40); RED CELL DISTRIBUTION WIDTH 17.7 % (11.6-13.7); WHITE BLOOD COUNT (AUTO) 5.3 K/uL (4.8-10.8)
[2023-07-12 08:42] LABS: ANION GAP 10.7 (8-16); CALCIUM 8.5 mg/dL (8.5-10.1); CARBON DIOXIDE 30.1 mmol/L (21-32); CREATININE 0.7 mg/dL (0.6-1.3); POTASSIUM 3.8 mmol/L (3.5-5.1)
[2023-07-12 08:50] LABS: ALBUMIN 3.2 g/dL (3.4-5.0); BILIRUBIN,DIRECT 0.1 mg/dL (0.0-0.3); TOTAL BILIRUBIN 0.2 mg/dL (0.0-1.0); TOTAL PROTEIN, SERUM 8.1 g/dL (6.4-8.2)
[2023-07-12] MEDS: MORPHINE SULFATE 4 MG/ML SYR IM ONE (09:13)
[2023-07-12] MEDS ORDERED: ALUM355S59 PO (09:21)
== END 2023-07-12 09:31 | disposition home or self-care (01) ==
LOC: MED 06:59
DX: R10.11 Right upper quadrant pain (principal); D50.9 Iron deficiency anemia, unspecified; R11.0 Nausea; E03.9 Hypothyroidism, unspecified; Z79.899 Other long term (current) drug therapy
CPT/HCPCS: 36415; 80048; 80076; 81002; 81025; 83690; 84703; 85025; 96372; 99283; J2270; Q0162; J1885

== ENCOUNTER 2023-09-03 11:55 | Emergency (ER) | payer OTHER ==
[~2023-09-03] VITALS: Ht 162.6 cm; Wt 94.8 kg
[~2023-09-03 11:55] MED LIST changes: +ALUM355S59 PO
[2023-09-03 12:07] VITALS: BP 116/66; PULSE 90; RESP 18; TEMP 98; O2SAT 98
[2023-09-03] MEDS: HYDROcodone/APAP 5/325 MG 1 TAB TAB PO ONE (12:31)
[2023-09-03] MEDS ORDERED: TRAM50TA3 PO (12:47)
[2023-09-03 12:55] VITALS: BP 116/66; PULSE 90; RESP 18; TEMP 98; O2SAT 98
== END 2023-09-03 12:55 | disposition home or self-care (01) ==
LOC: MED 11:55
DX: R10.11 Right upper quadrant pain (principal); Z79.1 Long term (current) use of non-steroidal anti-inflammatories (NSAID); Z79.899 Other long term (current) drug therapy
CPT/HCPCS: 99283

== ENCOUNTER 2023-09-19 09:05 | Emergency (ER) | payer OTHER ==
[~2023-09-19] VITALS: Ht 162.6 cm; Wt 93.0 kg
[~2023-09-19 09:05] MED LIST changes: +HYDR-5071 PO; -HYDR-5191 PO
[2023-09-19 09:17] VITALS: BP 110/64; PULSE 74; RESP 18; TEMP 98.7; O2SAT 98
[2023-09-19] MEDS ORDERED: TRAM50TA3 PO (11:19)
[2023-09-19] MEDS: HYDROcodone/APAP 5/325 MG 1 TAB TAB PO ONE (11:25)
== END 2023-09-19 11:40 | disposition home or self-care (01) ==
LOC: MED 09:05
DX: G89.29 Other chronic pain (principal); R10.11 Right upper quadrant pain; R11.0 Nausea; Z86.39 Personal history of other endocrine, nutritional and metabolic disease; Z79.899 Other long term (current) drug therapy; Z88.6 Allergy status to analgesic agent
CPT/HCPCS: 99283

== ENCOUNTER 2023-11-25 15:04 | Emergency (ER) | payer OTHER ==
[~2023-11-25] VITALS: Ht 172.7 cm; Wt 81.6 kg
[2023-11-25 15:28] VITALS: BP 116/64; PULSE 80; RESP 20; TEMP 97.8; O2SAT 99
[2023-11-25] MEDS ORDERED: TRAM50TA3 PO (16:18)
[2023-11-25] MEDS: KETOROLAC 30 MG/ML VIAL IM ONE (16:27)
[2023-11-25 16:31] VITALS: BP 116/64; PULSE 80; RESP 20; TEMP 97.8; O2SAT 99
== END 2023-11-25 16:30 | disposition home or self-care (01) ==
LOC: MED 15:04
DX: G89.29 Other chronic pain (principal); R10.11 Right upper quadrant pain; R11.2 Nausea with vomiting, unspecified; Z86.39 Personal history of other endocrine, nutritional and metabolic disease; Z90.49 Acquired absence of other specified parts of digestive tract; Z79.899 Other long term (current) drug therapy; Z88.6 Allergy status to analgesic agent
CPT/HCPCS: 81002; 81025; 96372; 99283; J1885

== ENCOUNTER 2023-12-02 22:12 | Emergency (ER) | payer OTHER ==
[~2023-12-02] VITALS: Ht 162.6 cm; Wt 90.3 kg
[2023-12-02 22:57] VITALS: BP 120/66; PULSE 71; RESP 17; TEMP 98; O2SAT 99
[2023-12-03] MEDS: ONDANSETRON 4 MG/2 ML VIAL IVP ONE (02:53)
[2023-12-03] MEDS: MORPHINE SULFATE 10 MG/ML VIAL IVP ONE (02:54)
[2023-12-03 03:00] VITALS: BP 102/66; PULSE 62; RESP 15; TEMP 98; O2SAT 98
[2023-12-03 03:15] LABS: HEMATOCRIT 31.6 % (36-48); HEMOGLOBIN 9.6 g/dL (12.0-16.0); MEAN CORPUSCULAR HEMOGLOBIN 21 pg (27-31); MEAN CORPUSCULAR HGB CONC 31 g/dL (33-37); MEAN CORPUSCULAR VOLUME 68.4 fL (80-94); PLATELET COUNT (AUTO) 358 K/uL (140-450); RED BLOOD CELL COUNT(AUTO) 4.62 MIL/uL (4.20-5.40); RED CELL DISTRIBUTION WIDTH 21.9 % (11.6-13.7); WHITE BLOOD COUNT (AUTO) 7.3 K/uL (4.8-10.8)
[2023-12-03 03:34] LABS: ALBUMIN 3.6 g/dL (3.4-5.0); ANION GAP 13.6 (8-16); CALCIUM 8.7 mg/dL (8.5-10.1); CARBON DIOXIDE 27.2 mmol/L (21-32); CREATININE 0.8 mg/dL (0.6-1.3); POTASSIUM 3.8 mmol/L (3.5-5.1); TOTAL BILIRUBIN 0.3 mg/dL (0.0-1.0); TOTAL PROTEIN, SERUM 7.7 g/dL (6.4-8.2)
[2023-12-03 03:39] LABS: EOSINOPHILS % (MANUAL) 9 % (0-4); LYMPHOCYTES % (MANUAL) 49 % (20-46); MONOCYTES % (MANUAL) 4 % (5-12)
[2023-12-03 03:40] LABS: HYPOCHROMASIA 1+
[2023-12-03] MEDS: DICYCLOMINE 20 MG/2 ML VIAL IM ONE (04:55)
[2023-12-03] MEDS: MORPHINE SULFATE 4 MG/ML SYR IVP ONE (04:56)
== END 2023-12-03 04:55 | disposition home or self-care (01) ==
LOC: MED 22:12
DX: R10.9 Unspecified abdominal pain (principal); G89.29 Other chronic pain; Z86.39 Personal history of other endocrine, nutritional and metabolic disease; Z79.899 Other long term (current) drug therapy; Z88.6 Allergy status to analgesic agent
CPT/HCPCS: 36415; 80053; 81025; 83690; 85025; 96372; 96374; 96375; 96376; 99284; J0500; J2270; J2405

== ENCOUNTER 2023-12-11 22:09 | Emergency (ER) | payer OTHER ==
[~2023-12-11] VITALS: Ht 162.6 cm; Wt 92.5 kg
[2023-12-11 22:22] VITALS: BP 124/68; PULSE 73; RESP 18; TEMP 98; O2SAT 98
[2023-12-12] MEDS: ONDANSETRON 4 MG ODT PO ONE (00:55)
[2023-12-12] MEDS: MORPHINE SULFATE 4 MG/ML SYR IM ONE (00:56)
[2023-12-12 00:59] VITALS: BP 122/68; PULSE 82; RESP 18; TEMP 98; O2SAT 99
== END 2023-12-12 00:59 | disposition home or self-care (01) ==
LOC: MED 22:09
DX: G89.29 Other chronic pain (principal); R10.11 Right upper quadrant pain; R11.0 Nausea; Z90.49 Acquired absence of other specified parts of digestive tract; Z79.1 Long term (current) use of non-steroidal anti-inflammatories (NSAID); Z79.2 Long term (current) use of antibiotics; Z79.899 Other long term (current) drug therapy; Z88.6 Allergy status to analgesic agent
CPT/HCPCS: 96372; 99283; J2270; Q0162